=== PATIENT | female | born 1985 | race Two or more races ===

== ENCOUNTER 2020-09-24 19:43 | Emergency (ER) | payer BC, OTHER ==
[~2020-09-24] VITALS: Ht 167.6 cm; Wt 109.0 kg
[2020-09-24] MEDS ORDERED: ADENOSINE 6 MG/2 ML ONE (19:47)
[2020-09-24] MEDS ORDERED: LORazepam 2 MG/ML, 1ML ONE (19:50)
[2020-09-24] MEDS ORDERED: LORazepam 2 MG/ML, 1ML IVPush ONE (20:00)
[2020-09-24] MEDS ORDERED: SODIUM CHLORIDE 0.9% 1,000ML IVBOLUS ONE (20:00)
--- NOTE | 2020-09-24 20:00 | NUR ---
THIS IS A 35F THAT COMES IN WITH , PER PT OUT OF HEART MEDICATION AND HAS ALLERGIES. PT PRESENTS W/ HR IN THE 160'S-170'S W/ RESP IN THE 30'S. PT CONNECTED TO ALL MONITORING, PIV STARTED.
--- NOTE | 2020-09-24 20:06 | NUR ---
xray at bedside.
--- NOTE | 2020-09-24 20:10 | NUR ---
LAB AT BEDSIDE AT THIS TIME. PT HR IMPROVED AFTER 1MG IV ATIVAN PER DR LEOS. PT NOW STARTING TO RELAX ARMS AND CONVERSE WITH AND STAFF
[2020-09-24 20:19] LABS: BASOPHILS % (AUTO) 1 % (0-1); EOSINOPHILS % (AUTO) 0 % (1-7); LYMPHOCYTES % (AUTO) 11 % (22-44); MEAN CORPUSCULAR HGB CONC 32.4 g/dL (32.4-35.8); MEAN PLATELET VOLUME 7.9 fL (7.4-10.4); MONOCYTES % (AUTO) 6 % (2-9); NEUTROPHILS % (AUTO) 83 % (42-75); PLATELET COUNT 362 x10^3/uL (130-400); RED CELL DISTRIBUTION WIDTH 22.8 % (9.6-15.2)
--- NOTE | 2020-09-24 20:26 | NUR ---
PT RESTING ON GURNEY APPEARS TO BE CALMER AND VS IMPROVING.
[2020-09-24 20:30] LABS: ANION GAP 14 mmol/L (5-15); CALCIUM 7.4 mg/dL (8.5-10.1); CHLORIDE 101 mmol/L (98-107); CREATININE 0.58 mg/dL (0.55-1.02)
[2020-09-24 20:39] LABS: TROPONIN I < 0.015 ng/mL (0.000-0.045)
--- NOTE | 2020-09-24 20:39 | NUR ---
TASK RN: PT TRANSFERED TO NEW ROOM, STATES FEELING MUCH BETTER AFTER CUTTER IN, PROVIDED WARM BLANKET. NO OTHER NEEDS AT THIS TIME
--- NOTE | 2020-09-24 20:39 | NUR ---
REPORT TO DANIKA DEL TOROKNIFE SHARPENER OF CARE AT THIS TIME
--- NOTE | 2020-09-24 20:41 | NUR ---
report from paul renteria. vss. sandoval. transfered to room 31 with belongings via gurney in stable condtion
[2020-09-24 21:19] LABS: MD SCAN
--- NOTE | 2020-09-24 21:47 | NUR ---
pt up to bathroom with steady gait.
[2020-09-24] MEDS ORDERED: DEXAMETHASONE 4 MG/ML, 5ML ONE (21:50)
[2020-09-24] MEDS ORDERED: DEXAMETHASONE 4 MG/ML, 1ML ONE (21:50)
[2020-09-24 21:57] VITALS: BP 165/77
--- NOTE | 2020-09-24 21:58 | NUR ---
Patient/Caregiver given discharge instructions and they have confirmed that they understand the instructions. Patient ambulatory with steady gait.
[2020-09-24] MEDS ORDERED: DEXAMETHASONE 4 MG/ML, 5ML IVPush ONE (22:00)
== END 2020-09-24 21:59 | disposition home or self-care (01) ==
LOC: ED 21:45
DX: R00.2 Palpitations (principal); R00.0 Tachycardia, unspecified; R07.89 Other chest pain
CPT/HCPCS: 36415; 71045; 80048; 82040; 84443; 84484; 85025; 93005; 96374; 96375; 99285; J1100; J2060; J7030